=== PATIENT | male | born 1980 | race Caucasian/White ===

== ENCOUNTER 2017-07-20 10:21 | Emergency (ER) | payer MEDICAID, OTHER ==
[2017-07-20] MEDS ORDERED: ACETAMINOPHEN 325 MG TABLET PO ONE (10:31)
[2017-07-20] MEDS ORDERED: ONDANSETRON HCL INJ/PF 4 MG/2 ML SDV IV ONE (10:45)
[2017-07-20] MEDS ORDERED: KETOROLAC TROMETHAMINE INJ/PF 30 MG/1 ML SDV IV ONE (10:45)
[2017-07-20] MEDS ORDERED: NORMAL SALINE 1000 ML 1,000 ML IV PRN (10:46)
--- NOTE | 2017-07-20 10:51 | ER Document Report ---
ED Flu Like - General Chief Complaint: Flu Symptoms Stated Complaint: NAUSEA Time Seen by Provider: 07/20/17 10:38 Mode of Arrival: Ambulatory Information source: Patient Notes: 7-year-old male presents to ED for cough cold congestion nausea body aches since last night. He has had fever this morning of 101.4. He states he is felt hot and cold all night. He states he did not get a flu shot. States his had strep week or so ago. TRAVEL OUTSIDE OF THE [place] IN LAST 30 DAYS: No - HPI Onset: Yesterday Timing/Duration: Intermittent Quality of pain: Achy, Sharp Severity: Severe Pain Level: 5 Associated symptoms: Body/muscle aches, Chills, Fever, Nausea, Rhinnorhea, Sinus pain/drainage, Sore throat Similar symptoms previously: Yes Recently seen / treated by doctor: No - Related Data Allergies/Adverse Reactions: No Known Allergies Allergy (Verified 07/20/17 10:28) Past Medical History - General Information source: Patient - Social History Smoking Status: Never Smoker Cigarette use (# per day): No Chew tobacco use (# tins/day): No Smoking Education Provided: No Frequency of alcohol use: None Drug Abuse: None Lives with: Family Family History: Reviewed & Not Pertinent Patient has suicidal ideation: No Patient has homicidal ideation: No - Past Medical History Cardiac Medical History: Reports: None Pulmonary Medical History: Reports: None EENT Medical History: Reports: None Neurological Medical History: Reports: None Endocrine Medical History: Reports: None Renal/ Medical History: Reports: None Malignancy Medical History: Reports None GI Medical History: Reports: Hx Diverticulitis Musculoskeltal Medical History: Reports None Skin Medical History: Reports None Psychiatric Medical History: Reports: None Traumatic Medical History: Reports: None Infectious Medical History: Reports: None Past Surgical History: Reports: Hx Abdominal Surgery - 2 feet of colon part of rectum and part of bladder removed with diverticul, Hx Bowel Surgery, Hx Genitourinary Surgery - Bladder removed during a diverticulitis abscess - Immunizations Immunizations up to date: Yes Review of Systems - Review of Systems Constitutional: Chills, Fever, Recent illness EENT: No symptoms reported, Nose discharge, Sinus discharge Cardiovascular: No symptoms reported Respiratory: Cough Gastrointestinal: Nausea Genitourinary: No symptoms reported Male Genitourinary: No symptoms reported Musculoskeletal: Muscle pain, Muscle stiffness Skin: No symptoms reported Hematologic/Lymphatic: No symptoms reported Neurological/Psychological: No symptoms reported -: Yes All other systems reviewed and negative Physical Exam - Vital signs Vitals: Temp Pulse Resp BP Pulse Ox 101.4 F H 112 H 16 139/71 H 95 07/20/17 10:28 07/20/17 10:28 07/20/17 10:28 07/20/17 10:28 07/20/17 10:28 Interpretation: Normal - General General appearance: Appears well, Alert - HEENT Head: Normocephalic, Atraumatic Eyes: Normal Pupils: PERRL Visual longoria normal: Yes Ears: Normal External canal: Normal Tympanic membrane: Normal Sinus: Normal Nasal: Purulent discharge, Swelling Mouth/Lips: Normal Pharynx: Post nasal drainage Neck: Anterior cervical chain - Respiratory Respiratory status: No respiratory distress Chest status: Nontender Breath sounds: Nonproductive cough. No: Productive cough, Rales, Rhonchi, Stridor, Wheezing Chest palpation: Normal - Cardiovascular Rhythm: Regular Heart sounds: Normal auscultation Murmur: No - Abdominal Inspection: Normal Distension: No distension Bowel sounds: Normal Tenderness: Nontender Organomegaly: No organomegaly - Back Back: Normal, Nontender - Extremities General upper extremity: Normal inspection, Nontender, Normal color, Normal ROM , Normal temperature General lower extremity: Normal inspection, Nontender, Normal color, Normal ROM , Normal temperature, Normal weight bearing. 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 - Vital Signs Vital signs: Temp Pulse Resp BP Pulse Ox 97.9 F 85 16 136/63 H 96 07/20/17 14:09 07/20/17 14:09 07/20/17 10:28 07/20/17 14:09 07/20/17 14:09 - Laboratory Result Diagrams: 07/20/17 11:05 07/20/17 12:50 Laboratory results interpreted by me: 07/20/17 07/20/17 11:05 12:50 WBC 13.6 H Seg Neutrophils % 84.6 H Lymphocytes % 9.7 L Absolute Neutrophils 11.5 H Carbon Dioxide 21 L Discharge - Discharge Clinical Impression: Viral respiratory illness Headache Qualifiers: Headache type: unspecified Headache chronicity pattern: unspecified pattern Intractability: not intractable Qualified Code(s): R51 - Headache Condition: Stable Disposition: HOME, SELF-CARE Instructions: Family Physicians / Practices Additional Instructions: Viral Syndrome The physician has diagnosed a viral infection. Viruses not only cause "colds," but can cause many different symptoms including generalized aching, fever, headache, cough, diarrhea, nausea, vomiting, and fatigue. The treatment, for the most part, is simply relief of symptoms. This means that antibiotics are usually not given. Rest, fluids, pain medications and, occasionally, medication for the specific symptoms that are most bothersome will be prescribed. Use good handwashing to avoid passing the virus to others. Shared toys should be cleaned with disinfectant. Clean the toilets, sinks, and counter surfaces in bathrooms. Launder clothing in hot water. Contact the physician if you develop any new or unusual symptoms such as severe headache, stiff neck, high fever, chest pain, productive cough, or shortness of breath. You should be rechecked if you don't see marked improvement within seven to 10 days. HEADACHE: The physician does not feel that the headache you are experiencing has a serious underlying cause. Most headaches are due to emotional stress, with resultant muscle tension (tension headache). Occasionally, headaches are secondary to changes in the blood vessels of the scalp (vascular headache and migraine headache). Sometimes, a headache is the first symptom of another developing illness, such as a viral infection. You have no evidence of stroke, bleeding, meningitis, or other serious cause of your headache. The treatment of headaches varies with the severity and cause of the pain. Not all headaches need pain shots. In fact, there is evidence that using narcotics for headaches may make them worse in the long run. The physician will determine the therapy that's in your best interest. If you develop a fever, if the headache is different from any you've previously experienced, or if the headache progressively worsens, then call your physician at once or go to the emergency room. USE OF DIPHENHYDRAMINE: Diphenhydramine (Benadryl) is an antihistamine and has been recommended to help treat your headache and to prevent side effects of other medications used to treat headaches. The medication can be repeated four times daily. Age Elixir (12.5 mg/tsp) 25 mg pill adult 1-2 tabs Antihistamines may cause drowsiness, especially with the first dose. Do not operate machinery or drive while under the effects of the medication. Do not combine the medication with alcohol, or with any other medication without talking to your doctor. ANTINAUSEA MEDICATION: You have been given a medication to suppress nausea and vomiting. This type of medication can be given as a shot, pill, or suppository. It will usually last for many hours. Pills and shots usually last six to eight hours, suppositories last about 12 hours. For the typical illness, only one or two doses of the medication may be necessary. Mild lightheadedness may occur. This type of medicine can cause drowsiness. Do not drive or operate dangerous machinery while under its influence. Do not mix with alcohol. See your doctor at once if you have muscle spasms or tightness, or uncontrollable motions (particularly of the neck, mouth, or jaw). Persistent vomiting or severe lightheadedness should also be evaluated by the physician. INTRAVENOUS COMPAZINE FOR HEADACHE: You have received therapy for headaches, using intravenous Compazine. This treatment is dramatically successful in relieving the headache in about 50 percent of cases. When it works, it provides a rapid method of eliminating the headache without resorting to narcotics (and the problems associated with them). Most patients still feel fully alert after the Compazine, but others may be slightly drowsy. It's best not to drive or work with machinery for six to eight hours. Do not take alcohol or other medication unless you discuss it with the doctor. If you develop tightness and spasms in your muscles, especially the neck and tongue, you should return. This is a side effect which can be treated. TORADOL INJECTION: You have been given an injection of ketorolac tromethamine (Toradol). This is an excellent, safe drug for pain control. It also has potent antiinflammatory action. You should have significant pain relief within about one hour. Toradol is not addicting and is non-sedating. It does not interfere with driving or work. Call or return if you develop itching, hives, shortness of breath, or rash. STEROID MEDICATION: You have been given an injection of medicine of the cortisone/steroid class. This medication is used to control inflammation or allergy. It is often continued as a pill for a short period of time, until the acute process subsides. There are usually no side effects from short-term use of cortisone-like medications. Some persons feel an increased sense of well-being and are not sleepy at bedtime. Long-term use of cortisone medications is best avoided, unless required for a severe condition. If your condition does not remit, or relapses after the course of corticosteroid medication, you should consult your physician. Intravenous (IV) Fluids As part of your care today, you received intravenous (IV) fluids. IV fluids are administered to patients who are dehydrated or to those who have certain chemical (electrolyte) abnormalities that need correcting. FOLLOW-UP CARE: If you have been referred to a physician for follow-up care, call the physician s office for an appointment as you were instructed or within the next two days. If you experience worsening or a significant change in your symptoms, notify the physician immediately or return to the Emergency Department at any time for re-evaluation. Prescriptions: Prochlorperazine Maleate [Compazine 10 mg Tablet] 10 mg PO Q6HP PRN #10 tablet PRN Reason: Ondansetron [Zofran Odt 4 mg Tablet] 1 tab PO Q6H #15 tab.rapdis Forms: Elevated Blood Pressure, Return to Work
[2017-07-20 11:19] LABS: ABSOLUTE LYMPHOCYTES (AUTO) 1.3 10^3/uL (0.5-4.7); ABSOLUTE MONOCYTES (AUTO) 0.7 10^3/uL (0.1-1.4); ABSOLUTE NEUT (AUTO) 11.5 10^3/uL (1.7-8.2); BASOPHILS % (AUTO) 0.3 % (0-2); HEMATOCRIT 43.6 % (37.9-51.0); HEMOGLOBIN 14.9 g/dL (13.5-17.0); HGB HCT DIFFERENCE 1.1; LYMPHOCYTES % (AUTO) 9.7 % (13-45); MEAN CORPUSCULAR HEMOGLOBIN 29.4 pg (27.0-33.4); MEAN CORPUSCULAR HGB CONC 34.2 g/dL (32.0-36.0); MEAN CORPUSCULAR VOLUME 86 fl (80-97); MONOCYTES % (AUTO) 5.4 % (3-13); RED BLOOD COUNT 5.06 10^6/uL (4.35-5.55); RED CELL DISTRIBUTION WIDTH 13.6 % (11.5-14.0); SEGMENTED NEUTROPHILS % (AUTO) 84.6 % (42-78); WHITE BLOOD COUNT 13.6 10^3/uL (4.0-10.5)
[2017-07-20] MEDS ORDERED: PROCHLORPERAZINE EDISYLATE INJ 10 MG/2 ML VIAL IV ONE (13:23)
[2017-07-20] MEDS ORDERED: DIPHENHYDRAMINE HCL 50 MG/ML VIAL IV ONE (13:23)
[2017-07-20 13:36] LABS: ALANINE AMINOTRANSFERASE 42 U/L (21-72); ALBUMIN 4.1 g/dL (3.5-5.0); ALKALINE PHOSPHATASE 65 U/L (38-126); ANION GAP 15 (5-19); ASPARTATE AMINO TRANSFERASE 25 U/L (17-59); BILIRUBIN,DIRECT 0.2 mg/dL (0.0-0.4); BILIRUBIN,TOTAL 0.7 mg/dL (0.2-1.3); BLOOD UREA NITROGEN 16 mg/dL (7-20); CALCIUM 8.8 mg/dL (8.4-10.2); CARBON DIOXIDE 21 mmol/L (22-30); CHLORIDE 104 mmol/L (98-107); CREATININE RESULT 0.92 mg/dL (0.52-1.25); GLUCOSE 95 mg/dL (75-110); SODIUM 140.2 mmol/L (137-145); TOTAL PROTEIN 6.8 g/dL (6.3-8.2)
[2017-07-20 13:49] LABS: APPEARANCE,URINE CLEAR; BILIRUBIN,URINE NEGATIVE (NEGATIVE); GLUCOSE, URINE NEGATIVE (NEGATIVE); KETONES,URINE NEGATIVE (NEGATIVE); LEUKOCYTE ESTERASE,URINE NEGATIVE (NEGATIVE); NITRITE,URINE NEGATIVE (NEGATIVE); PROTEIN,URINE NEGATIVE (NEGATIVE); URINE SPECIFIC GRAVITY 1.014; UROBILINOGEN,URINE NEGATIVE mg/dL (<2.0)
[2017-07-20 14:10] VITALS: BP 136/63
== END 2017-07-20 14:20 | disposition home or self-care (01) ==
LOC: ER 10:21
DX: R51 Headache (principal); B34.9 Viral infection, unspecified; R11.0 Nausea; M79.1 Myalgia; R50.9 Fever, unspecified
CPT/HCPCS: 99283; 96361; 96374; 96375; 36415; 87040; 87070; 87880; 85025; 87077; 80053; 81001; 87804; J3490; J1200; J1885; J0780; J2405; J7030

== ENCOUNTER 2019-03-27 10:26 | Emergency (ER) | payer MEDICAID, OTHER ==
[2019-03-27 10:31] VITALS: BP 141/82
--- NOTE | 2019-03-27 10:48 | ER Document Report ---
HPI - HPI Time Seen by Provider: 03/27/19 10:43 Pain Level: 2 Notes: Patient is a 38-year-old male with no significant past medical history who presents complaining of bilateral eye redness, irritation, matting, and discharge over the past day. Patient does not wear contact lenses. 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 Denies drug allergies. No recent illness. Denies any headache, fever, neck pain, changes in vision/speech/mentation/hearing, URI, sore throat, chest pain, palpitations, syncope, cough, shortness of breath, wheeze, dyspnea, abdominal pain, nausea/vomiting/diarrhea, urinary retention, dysuria, hematuria, or rash. - ROS Systems Reviewed and Negative: Yes All other systems reviewed and negative Past Medical History - Social History Smoking Status: Unknown if Ever Smoked Family History: Reviewed & Not Pertinent Renal/ Medical History: Denies: Hx Peritoneal Dialysis GI Medical History: Reports: Hx Diverticulitis Past Surgical History: Reports: Hx Abdominal Surgery - 2 feet of colon part of rectum and part of bladder removed with diverticul, Hx Bowel Surgery, Hx Genitourinary Surgery - Bladder removed during a diverticulitis abscess, Hx Rectal Surgery - diverticulitis - Immunizations Immunizations up to date: Yes Vertical Provider Document - CONSTITUTIONAL Agree With Documented VS: Yes Notes: PHYSICAL EXAMINATION: GENERAL: Well-appearing, well-nourished and in no acute distress. A&Ox4 HEAD: Atraumatic, normocephalic. EYES: Pupils equal round and reactive to light, extraocular movements intact, sclera anicteric, conjunctiva left shows very mild episcleritis b/l w/o discharge or matting. Non-tender to palp of the globe and eye itself. No surrounding erythema or swelling noted. Visual acuity 20/20 b/l and in each eye (performed by myself at bedside with my own eye chart). Wood's lamp/flourescein: No abrasion, laceration, ulceration, or sharif sign noted. No obvious foreign body appreciated. ENT: Nares patent and without discharge. oropharynx clear without exudates. No tonsilar hypertrophy or erythema. Moist mucous membranes. No sinus tenderness. Uvula midline. No palatine shift. No airway compromise. No drooling or hoarseness. NECK: Normal range of motion, supple without lymphadenopathy. No rigidity/meningismus. LUNGS: Breath sounds clear to auscultation bilaterally and equal. No wheezes rales or rhonchi. HEART: Regular rate and rhythm without murmurs, rubs, gallops. NEUROLOGICAL: Cranial nerves grossly intact. Normal speech, normal gait. PSYCH: Normal mood, normal affect. SKIN: Warm, Dry, normal turgor, no rashes or lesions noted. - INFECTION CONTROL TRAVEL OUTSIDE OF THE [place] IN LAST 30 DAYS: No Course - Re-evaluation Re-evalutation: 03/27/19 10:46 Patient is an afebrile, well-hydrated, 38-year-old male who presents to the emergency department with conjunctivitis to his eyes b/l. Vitals are acceptable without significant tachycardia, tachypnea, or hypoxia. PE is otherwise unremarkable. Wood's lamp/fluorescein exam unremarkable. Patient is nontoxic- appearing and is able to tolerate p.o. without difficulty. No labs or imaging warranted. Low suspicion for any retained corneal or lid foreign body, deep space infection including orbital cellulitis/abscess, acute glaucoma, penetrating globe injury, retinal detachment, meningitis, sepsis, fracture, compartment syndrome. I will send home with a prescription for Polytrim to use as directed. Conservative measures otherwise for symptoms with proper handwashing. Recheck with your PCM in 3-5 days. Consider follow-up with ophthalmology. Return to the ED with any worsening/concerning symptoms otherwise as reviewed in discharge. Patient is in agreement. - Vital Signs Vital signs: Temp Pulse Resp BP Pulse Ox 97.7 F 70 18 141/82 H 97 03/27/19 10:30 03/27/19 10:30 03/27/19 10:30 03/27/19 10:30 03/27/19 10:30 Procedures - Eye Procedure Bilateral Eye Irrigated w/ Saline (ccs): 20 - see exam Alcaine Drops Administered: Yes - tetracaine Fluorescein applied: Bilateral Discharge - Discharge Clinical Impression: Bilateral conjunctivitis Qualifiers: Conjunctivitis type: unspecified Qualified Code(s): H10.9 - Unspecified conjunctivitis Condition: Stable Disposition: HOME, SELF-CARE Instructions: Conjunctivitis ([facility]), Eyedrop Use ([facility]) Additional Instructions: Keep eyes clean Avoid scratching/touching eyes Wash hands regularly Use eye drops as directed Maintain adequate fluid intake tylenol/ibuprofen as needed over the counter cold medication as needed for symptoms F/u: with your PCM in 2-3 days for a recheck Consider consult with Ophthalmology for ongoing/worsening symptoms Return to the ED with any worsening symptoms and/or development of fever, headache, changes in vision, eye pain, worsening eye redness, redness around the eyes, purulent discharge, sore throat, facial swelling, neck pain/stiffness, chest pain, palpitations, syncope, shortness of breath, trouble breathing, abdominal pain, n/v/d, blood in stool/urine, dysuria, or other worsening symptoms that are concerning to you. Prescriptions: Polymyxin B Sulf/Trimethoprim [Polytrim Eye Drops] 1 drop OD Q3H #10 ml Forms: Elevated Blood Pressure Referrals: PRISCILLA WALLACE MD [ACTIVE STAFF] - Follow up as needed
[2019-03-27] MEDS ORDERED: TETRACAINE HCL 0.5% OPH SOLN 4 ML OU ONE (10:51)
== END 2019-03-27 11:18 | disposition home or self-care (01) ==
LOC: ER 10:26
DX: H10.9 Unspecified conjunctivitis (principal); H57.13 Ocular pain, bilateral
CPT/HCPCS: 99282; J3490